=== PATIENT | female | born 1995 | race Caucasian/White ===

== ENCOUNTER 2016-10-24 17:07 | Emergency (ER) | payer BC ==
[2016-10-24] MEDS ORDERED: Adenosine* 3 MG/ML VIAL IV PUSH ONE ×2 (17:39→18:27)
[2016-10-24] MEDS ORDERED: NS 0.9% 1000 ML* 1,000 ML IV ONE (17:39)
[2016-10-24] MEDS ORDERED: Adenosine* 3 MG/ML VIAL ONE (17:39)
[2016-10-24] MEDS ORDERED: Aspirin Low Dose CHEW TAB* 81 MG PO ONE (17:48)
[2016-10-24 18:09] LABS: Hematocrit 35 % (35-47); Hemoglobin 11.8 g/dl (12.0-16.0); Mean Corpuscular HGB Conc 34 g/dl (31-36); Mean Corpuscular Hemoglobin 28 pg (27-31); Mean Corpuscular Volume 82 fL (80-97); Mean Platelet Volume 8 um3 (7.4-10.4); Red Blood Count 4.24 10^6/ul (4.0-5.4); Red Cell Distribution Width 12 % (10.5-15); White Blood Count 6.2 10^3/ul (3.5-10.8)
--- NOTE | 2016-10-24 18:20 | RAD ---
Indication: Tachycardia. Comparison: None. Technique: Upright AP 1757 hours Report: Cutaneous pacemaker pads. Clear lungs and pleural spaces. Negative for pneumothorax. The heart, pulmonary vasculature, and mediastinal contours are unremarkable. Unremarkable osseous structures and soft tissue contours. IMPRESSION: No evidence for acute intrathoracic disease.
[2016-10-24 18:22] LABS: Albumin 3.9 g/dL (3.2-5.2); BUN/Creatinine Ratio 28.1 (8-20); Calcium 9.6 mg/dL (8.6-10.3); EGFR African American 332.1 (>60); EGFR Non-African American 258.2 (>60); Globulin 2.8 g/dL (2-4); Potassium 3.6 mmol/L (3.5-5.0); Total Bilirubin 2.2 mg/dL (0.2-1.0); Total Protein 6.7 g/dL (6.4-8.9)
[2016-10-24 18:43] LABS: T4 21.71 g/dL (6.09-12.23)
[2016-10-24 18:44] LABS: TSH (Thyroid Stimulating Horm) 0.03 mcIU/mL (0.34-5.60)
[2016-10-24] MEDS ORDERED: Metoprolol Tartrate TAB* 25 MG PO ONE (19:33)
[2016-10-24 20:22] VITALS: BP 130/75
--- NOTE | 2016-10-24 20:31 | ED ---
Jim Murrieta Adam, scribed for Jonathon Silver MD on 10/24/16 at 1733 . HPI Cardiac - HPI Summary HPI Summary: Pt is a 20 year old female presenting with tachycardia. She states that she went to her PCP's office for a regular appt today when her HR was found to be tachycardic, so she was sent to the ED. Upon examination her HR is in the 140' s. She denies any Hx of tachycardia or cardiac problems. She denies any CP, SOB , or dizziness. PMHx of IBS. No surgical Hx. FMHx of anemia (mother). LMP was 3 weeks ago. - History of Current Complaint Chief Complaint: EDDysrhythmPalp Stated Complaint: HIGH HEARTRATE Time Seen by Provider: 10/24/16 17:25 Hx Obtained From: Patient Onset/Duration: Started Hours Ago, Atraumatic, Still Present Timing: Constant Initial Severity: Moderate Current Severity: Moderate Pain Intensity: 0 Character: Other: - Tachycardia, discovered at PCP's office Aggravating Factor(s): Nothing Alleviating Factor(s): Nothing Associated Signs and Symptoms: Positive: Negative - Allergy/Home Medications Allergies/Adverse Reactions: Allergies Allergy/AdvReac Type Severity Reaction Status Date / Time No Known Allergies Allergy Verified 10/24/16 17:48 PMH/Surg Hx/FS Hx/Imm Hx GI History: Reports: Hx Irritable Bowel Infectious Disease History: No Infectious Disease History: Denies: Traveled Outside the [place] in Last 30 Days - Family History Known Family History: Positive: Other - Anemia (mother) - Social History Alcohol Use: None Hx Substance Use: No Substance Use Type: Reports: None Hx Tobacco Use: No Smoking Status (MU): Never Smoked Tobacco Review of Systems Cardiovascular: Negative Negative: Chest Pain Respiratory: Negative Negative: Shortness Of Breath Neurological: Negative All Other Systems Reviewed And Are Negative: Yes Physical Exam - Summary Physical Exam Summary: VITAL SIGNS: Reviewed. GENERAL: Patient is a well developed and nourished female who is lying comfortable in the stretcher. Patient is not in any acute respiratory distress. HEAD AND FACE: No signs of trauma. No ecchymosis, hematomas or skull depressions. No sinus tenderness. EYES: PERRLA, EOMI x 2, No injected conjunctiva, no nystagmus. EARS: Hearing grossly intact. Ear canals and tympanic membranes are within normal limits. MOUTH: Oropharynx within normal limits. NECK: Supple, trachea is midline, no adenopathy, no JVD, no carotid bruit, no c- spine tenderness, neck with full ROM. CHEST: Symmetric, no tenderness at palpation LUNGS: Clear to auscultation bilaterally. No wheezing or crackles. CVS: Tachycardia, Regular rate and rhythm, S1 and S2 present, no murmurs or gallops appreciated. ABDOMEN: Soft, non-tender. No signs of distention. No rebound no guarding, and no masses palpated. Bowel sounds are normal. EXTREMITIES: FROM in all major joints, no edema, no cyanosis or clubbing. NEURO: Alert and oriented x 3. No acute neurological deficits. Speech is normal and follows commands. SKIN: Dry and warm Triage Information Reviewed: Yes Vital Signs On Initial Exam: Initial Vitals Temp Pulse Resp BP Pulse Ox 99.6 F 143 22 131/66 98 10/24/16 17:10 10/24/16 17:10 10/24/16 17:10 10/24/16 17:10 10/24/16 17:10 Vital Signs Reviewed: Yes - Dario Coma Scale Coma Scale Total: 15 Diagnostics - Vital Signs Vital Signs Temp Pulse Resp BP Pulse Ox 10/24/16 17:20 99.6 F 143 22 131/66 98 10/24/16 17:18 144 20 96 10/24/16 17:10 99.6 F 143 22 131/66 98 - Laboratory Lab Results: Lab Results 10/24/16 10/24/16 10/24/16 Range/Units 17:16 17:16 17:16 WBC 6.2 (3.5-10.8) 10^3/ul RBC 4.24 (4.0-5.4) 10^6/ul Hgb 11.8 L (12.0-16.0) g/dl Hct 35 (35-47) % MCV 82 (80-97) fL MCH 28 (27-31) pg MCHC 34 (31-36) g/dl RDW 12 (10.5-15) % Plt Count 274 (150-450) 10^3/ul MPV 8 (7.4-10.4) um3 Neut % (Auto) 59.0 (38-83) % Lymph % (Auto) 28.8 (25-47) % [place] % (Auto) 11.7 H (1-9) % Eos % (Auto) 0.3 (0-6) % Baso % (Auto) 0.2 (0-2) % Absolute Neuts (auto) 3.6 (1.5-7.7) 10^3/ul Absolute Lymphs (auto) 1.8 (1.0-4.8) 10^3/ul Absolute Monos (auto) 0.7 (0-0.8) 10^3/ul Absolute Eos (auto) 0 (0-0.6) 10^3/ul Absolute Basos (auto) 0 (0-0.2) 10^3/ul Absolute Nucleated RBC 0 10^3/ul Nucleated RBC % 0.1 Sodium 134 (133-145) mmol/L Potassium 3.6 (3.5-5.0) mmol/L Chloride 102 (101-111) mmol/L Carbon Dioxide 25 (22-32) mmol/L Anion Gap 7 (2-11) mmol/L BUN 9 (6-24) mg/dL Creatinine 0.32 L (0.51-0.95) mg/dL Est GFR ( Amer) 332.1 (>60) Est GFR (Non-Af Amer) 258.2 (>60) BUN/Creatinine Ratio 28.1 H (8-20) Glucose 97 (70-100) mg/dL Lactic Acid 1.4 (0.5-2.0) mmol/L Calcium 9.6 (8.6-10.3) mg/dL Total Bilirubin 2.20 H (0.2-1.0) mg/dL AST 22 (13-39) U/L ALT 35 (7-52) U/L Alkaline Phosphatase 76 (34-104) U/L Total Protein 6.7 (6.4-8.9) g/dL Albumin 3.9 (3.2-5.2) g/dL Globulin 2.8 (2-4) g/dL Albumin/Globulin Ratio 1.4 (1-3) TSH 0.03 L (0.34-5.60) mcIU/mL Thyroxine (T4) 21.71 H (6.09-12.23) g/dL Result Diagrams: 10/24/16 17:16 03/01/17 17:16 Lab Statement: Any lab studies that have been ordered have been reviewed, and results considered in the medical decision making process. - EKG 17:44 Cardiac Rate: Tachycardia - 134 BPM EKG Rhythm: Sinus Tachycardia - No ST elevations 16:57 Cardiac Rate: Tachycardia - 139 BPM EKG Rhythm: Sinus Tachycardia EKG Interpretation: No ST elevations Disposition - Course Course Of Treatment: Pt is a 20 year old female presenting with tachycardia. She states that she went to her PCP's office for a regular appt today when her HR was found to be tachycardic, so she was sent to the ED. Upon examination her HR is in the 140's. She denies any Hx of tachycardia or cardiac problems. She denies any CP, SOB, or dizziness. PMHx of IBS. No surgical Hx. FMHx of anemia ( mother). LMP was 3 weeks ago. BW is WNL except for hemoglobin of 11.8, TSH of 0.03, and T4 of 21.71. This is consistent with acute hypothyroidism. Initially when the pt came in to the ED, her EKG showed sinus tachycardia, ranging between 130 and 140 BPM. Once she was in the ED her HR increased to 160 BPM, therefore the pt seems to be in SVT. The pt was given adenosine 6 and adenosine 12. The pt did not convert. She continues to be in sinus tachycardia at 140 BPM. All of this was done before obtaining the TSH and T4. At this point we know that the reason of the sinus tachycardia is secondary to the new-onset hypothyroidism. I discussed the case with Dr. Duron from cardiology and she recommended that the pt be given Metoprolol 25 mg BID. She will follow up with Dr. Duron for an echo and titrating of the Metoprolol and she will also follow up with endocrinology. At this point the pt is asymptomatic. She denies CP, SOB, dizziness, and palpitations. Therefore I believe that the pt has been dealing with these sx for a long time and today was just an incidental finding. She was recommended to return to the ED if she develops any CP, SOB, or palpitations. - Differential Dx - Cardiopulmonary Differential Diagnoses - Cardiopulmonary: Atrial Fibrillation, Atrial Flutter, Paroxysmal SVT, Paroxysmal VT - Diagnoses Provider Diagnoses: Hypothyroidism, Sinus tachycardia, SVT (supraventricular tachycardia) Discharge - Discharge Plan Condition: Stable Disposition: HOME Prescriptions: Metoprolol Tartrate TAB* [Lopressor TAB*] 25 mg PO BID #40 tab Patient Education Materials: Hypothyroidism (ED), Supraventricular Tachycardia (ED) Referrals: Pricila Duron MD [Medical Doctor] - Additional Instructions: Follow up with Dr. Duron (Cardiology). The documentation as recorded by the Jim sullivan Adam accurately reflects the service I personally performed and the decisions made by , Jonathon Silver MD.
== END 2016-10-24 20:29 | disposition home or self-care (01) ==
LOC: ED 17:07
DX: I47.1 Supraventricular tachycardia (principal); E03.9 Hypothyroidism, unspecified; R00.0 Tachycardia, unspecified
CPT/HCPCS: 36415; 71010; 80053; 83605; 84436; 84443; 85025; 93005; 96374; 99282; A9270-GY; J0153